=== PATIENT | male | born 1990 | race Caucasian/White ===

== ENCOUNTER 2019-01-21 17:50 | Outpatient (CLI) | payer OTHER ==
[~2019-01-21 17:50] MED LIST: OMNIPAQUE 350 MG/ML, 100ML BOTTLE ONE
== END 2019-01-21 23:59 | disposition home or self-care (01) ==
LOC: CFH 17:50 → RAD 23:59
PROVIDERS: ATTEND Nurse Practitioner Family
DX: J35.9 Chronic disease of tonsils and adenoids, unspecified (principal); J36 Peritonsillar abscess; K02.9 Dental caries, unspecified
CPT/HCPCS: 70491; Q9967

== ENCOUNTER 2019-01-22 11:52 | Emergency (ER) | payer OTHER ==
[~2019-01-22] VITALS: Ht 172.7 cm; Wt 54.0 kg
[2019-01-22 11:57] VITALS: BP 127/74
[2019-01-22] MEDS ORDERED: LIDOCAINE 1%-EPI 1:100K, 20ML ONE (12:10)
[2019-01-22] MEDS ORDERED: DEXAMETHASONE 4 MG/ML, 5ML ONE (12:25)
[2019-01-22] MEDS ORDERED: DEXAMETHASONE 4 MG/ML, 1ML IM ONE (12:30)
--- NOTE | 2019-01-22 13:08 | NUR ---
Patient/Caregiver given discharge instructions and they have confirmed that they understand the instructions. Patient ambulatory with steady gait.
== END 2019-01-22 13:11 | disposition home or self-care (01) ==
LOC: ED 12:21
DX: J36 Peritonsillar abscess (principal); J03.00 Acute streptococcal tonsillitis, unspecified; F17.200 Nicotine dependence, unspecified, uncomplicated
CPT/HCPCS: 42700; 96372; 99283; J1100; 99284